=== PATIENT | female | born 1985 | race Hispanic/Latino ===

== ENCOUNTER 2017-09-22 14:01 | Emergency (ER) | payer OTHER ==
[2017-09-22] MEDS ORDERED: hydrOXYzine 25 MG TAB ONE (14:31)
[2017-09-22] MEDS ORDERED: predniSONE 20 MG TAB ONE (14:31)
== END 2017-09-22 15:19 | disposition home or self-care (01) ==
LOC: ERS 14:01
DX: L29.9 Pruritus, unspecified (principal); Z87.891 Personal history of nicotine dependence
CPT/HCPCS: 99282; J7506